=== PATIENT | male | born 1955 | race Caucasian/White ===

== ENCOUNTER 2021-02-20 03:01 | Emergency (ER) | payer OTHER ==
[2021-02-20] MEDS ORDERED: METHOCARBAMOL 750 MG TABLET PO STA (03:18)
[2021-02-20] MEDS ORDERED: predniSONE 20 MG TABLET (UD) PO ONE (03:19)
[2021-02-20] MEDS ORDERED: predniSONE 20 MG TABLET (UD) ONE (03:19)
[2021-02-20] MEDS ORDERED: KETOROLAC TROMETHAMINE 60 MG/2 ML VIAL IM ONE (03:19)
[2021-02-20] MEDS ORDERED: METHOCARBAMOL 500 MG TABLET ONE (03:20)
[2021-02-20] MEDS ORDERED: KETOROLAC TROMETHAMINE 60 MG/2 ML VIAL ONE (03:20)
[2021-02-20] MEDS ORDERED: METHOCARBAMOL 500 MG TABLET PO ONE (03:29)
[2021-02-20 03:37] VITALS: TEMP 98.7; BMI 28.8
[2021-02-20 03:38] VITALS: BP 164/96; PULSE 70
== END 2021-02-20 03:40 | disposition home or self-care (01) ==
LOC: FER 03:01
DX: M54.32 Sciatica, left side (principal)
CPT/HCPCS: 99283-25

== ENCOUNTER 2021-06-20 09:04 | Day surgery (SDC) | payer OTHER ==
[2021-06-12 13:27] VITALS: BMI 28.3
[2021-06-20] MEDS ORDERED: MIDAZOLAM HCL 2 MG/2 ML SINGLE DOSE VIAL ONE (10:29)
[2021-06-20] MEDS ORDERED: BUPIVACAINE HCL/PF 0.5% (5 MG/ML) 30 ML VIAL IJ ONE (10:29)
[2021-06-20] MEDS ORDERED: BUPIVACAINE HCL/PF 0.5% (5MG/ML) 10 ML VIAL ONE (10:29)
[2021-06-20] MEDS ORDERED: BUPIVACAINE LIPOSOME/PF (EXPAREL) 266 MG/20 ML VIAL ONE (10:29)
[2021-06-20] MEDS ORDERED: SODIUM CHLORIDE 0.9% P/F 10 ML VIAL IJ ONE (10:30)
[2021-06-20] MEDS ORDERED: CEFAZOLIN 2 GM in DEXTROSE 5%-WATER - 50 ML IVPB ONE (11:15)
[2021-06-20] MEDS ORDERED: TRANEXAMIC ACID 1000 MG/10 ML VIAL IVPUSH ONE (11:15)
[2021-06-20] MEDS ORDERED: ceFAZolin SODIUM 1 GM VIAL ONE ×2 (12:10→21:43)
[2021-06-20] MEDS ORDERED: DEXAMETHASONE SOD PHOSPHATE 4 MG/1 ML VIAL ONE (12:10)
[2021-06-20] MEDS ORDERED: ONDANSETRON 4 MG/2 ML VIAL ONE (12:10)
[2021-06-20] MEDS ORDERED: TRANEXAMIC ACID 1000 MG/10 ML VIAL ONE ×2 (12:10→13:33)
[2021-06-20] MEDS ORDERED: PROMETHAZINE HCL 25 MG/1 ML VIAL IVPUSH PRN (14:23)
[2021-06-20] MEDS ORDERED: oxyCODONE HCL 5 MG TABLET PO PRN (14:23)
[2021-06-20] MEDS ORDERED: SCOPOLAMINE HYDROBROMIDE 1 PATCH PATCH.TD72 TD SCH (14:30)
[2021-06-20] MEDS ORDERED: MAG HYDROX/AL HYDROX/SIMETH 30 ML UNIT-DOSE CUP PO PRN (14:52)
[2021-06-20] MEDS ORDERED: ONDANSETRON 4 MG/2 ML VIAL IVPUSH PRN (14:52)
[2021-06-20] MEDS ORDERED: MAGNESIUM HYDROX 2400MG/30ML ORAL SUSPENSION 30 ML CUP PO PRN (14:52)
[2021-06-20] MEDS ORDERED: ACETAMINOPHEN 500 MG TABLET (FP) ONE (14:55)
[2021-06-20] MEDS ORDERED: LACTATED RINGERS SOLUTION 1,000 ML IV SCH (15:00)
[2021-06-20] MEDS: ACETAMINOPHEN 500 MG TABLET (FP) PO SCH ×2 (15:06→21:56)
[2021-06-20] MEDS ORDERED: oxyCODONE HCL 5 MG TABLET ONE (15:28)
[2021-06-20] MEDS: oxyCODONE HCL 5 MG TABLET PO PRN ×2 (15:30→21:56)
[2021-06-20] MEDS: CEFAZOLIN 2 GM in DEXTROSE 5%-WATER - 100 ML IVPB SCH (20:56)
[2021-06-20] MEDS ORDERED: DEXTROSE 5%-WATER - 100 ML IVPB ONE (21:43)
[2021-06-20] MEDS: ASPIRIN COATED 81 MG TABLET.EC PO SCH (21:55)
[2021-06-20] MEDS: GABAPENTIN 300 MG CAPSULE PO SCH (21:55)
[2021-06-20] MEDS: ASCORBIC ACID 500 MG TABLET (FP) PO SCH (21:55)
[2021-06-20] MEDS: SENNOSIDES/DOCUSATE COMBO (SENNA PLUS) TABLET (UD) PO SCH (21:57)
[2021-06-20] MEDS ORDERED: ATORVASTATIN CA 20 MG TABLET (FP) PO SCH (22:00)
[2021-06-21] MEDS: oxyCODONE HCL 5 MG TABLET PO PRN ×2 (01:35→05:59)
[2021-06-21] MEDS: ACETAMINOPHEN 500 MG TABLET (FP) PO SCH ×3 (03:11→15:04)
[2021-06-21] MEDS: CEFAZOLIN 2 GM in DEXTROSE 5%-WATER - 100 ML IVPB SCH (04:59)
[2021-06-21] MEDS ORDERED: metFORMIN HCL 500 MG TABLET (FP) PO SCH (07:00)
[2021-06-21 07:50] LABS: CALCIUM 8.9 mg/dl (8.5-10); CREATININE 0.9 mg/dl (0.55-1.3)
[2021-06-21 08:05] LABS: HEMATOCRIT 35.8 % (35.4-49); HEMOGLOBIN 12.3 G/dL (11.7-16.9); MCHC 34.4 g/dl (32.0-35.9); MEAN PLT VOLUME 8.2 fl (7.5-11.1); PLATELET COUNT 235.9 10^3/uL (134-434); RBC 4.11 10^6/uL (4.00-5.60); RDW 13.9 % (11.9-15.9); WHITE BLOOD COUNT 14.6 10^3/uL (4.0-10.8)
[2021-06-21] MEDS: GABAPENTIN 300 MG CAPSULE PO SCH (09:22)
[2021-06-21] MEDS: ASCORBIC ACID 500 MG TABLET (FP) PO SCH (09:23)
[2021-06-21] MEDS: SENNOSIDES/DOCUSATE COMBO (SENNA PLUS) TABLET (UD) PO SCH (09:23)
[2021-06-21] MEDS: ASPIRIN COATED 81 MG TABLET.EC PO SCH (09:24)
[2021-06-21] MEDS ORDERED: PANTOPRAZOLE 40 MG TABLET PO SCH (10:00)
[2021-06-21] MEDS ORDERED: MECLIZINE HCL 25 MG TABLET (FP) PO SCH (10:00)
[2021-06-21] MEDS ORDERED: MULTIVITAMINS (DAILY MVI) TABLET (FP) PO SCH (10:00)
[2021-06-21 14:10] VITALS: BP 138/71; PULSE 86; TEMP 98.1
== END 2021-06-21 16:08 | disposition home or self-care (01) ==
LOC: FASUSAT 09:04 → FM/S 16:16 → FASUSAT 06-21 16:08
PROVIDERS: ATTEND Orthopaedic Surgery
PROC: 0SRD0J9 Replacement of Left Knee Joint with Synthetic Substitute, Cemented, Open Approach (ICD-10-PCS; principal; 2021-06-20 12:28)
DX: M17.12 Unilateral primary osteoarthritis, left knee (principal)
CPT/HCPCS: 27447; C1776; 36415; 73560-TC-LT-FY; 80048; 82962; 85027; 88305-TC; 88311-TC; 94760; 97010-GP; 97116-GP; 97163-GP

== ENCOUNTER 2022-01-02 06:06 | Day surgery (SDC) | payer OTHER ==
[2021-12-28 11:10] VITALS: BMI 27.3
[2022-01-02] MEDS ORDERED: TRANEXAMIC ACID 1000 MG/10 ML VIAL IVPUSH ONE (06:25)
[2022-01-02] MEDS ORDERED: CEFAZOLIN 2 GM in DEXTROSE 5%-WATER - 50 ML IVPB ONE (06:30)
[2022-01-02] MEDS ORDERED: MIDAZOLAM HCL 2 MG/2 ML SINGLE DOSE VIAL ONE (07:24)
[2022-01-02] MEDS ORDERED: BUPIVACAINE LIPOSOME/PF (EXPAREL) 266 MG/20 ML VIAL ONE (07:24)
[2022-01-02] MEDS ORDERED: BUPIVACAINE HCL 100 ML ONE (07:24)
[2022-01-02] MEDS ORDERED: SODIUM CHLORIDE 0.9% P/F 10 ML VIAL IJ ONE (07:25)
[2022-01-02] MEDS ORDERED: SUCCINYLCHOLINE CHLORIDE 200 MG/10 ML SYRINGE ONE (07:37)
[2022-01-02] MEDS ORDERED: PROPOFOL 60 ML ONE (07:37)
[2022-01-02] MEDS ORDERED: TRANEXAMIC ACID 1000 MG/10 ML VIAL ONE (10:18)
[2022-01-02] MEDS ORDERED: DEXAMETHASONE SOD PHOSPHATE 4 MG/1 ML VIAL ONE (10:18)
[2022-01-02] MEDS ORDERED: ceFAZolin SODIUM 1 GM VIAL ONE (10:18)
[2022-01-02] MEDS ORDERED: ONDANSETRON 4 MG/2 ML VIAL ONE ×2 (10:18→13:43)
[2022-01-02] MEDS ORDERED: MAG HYDROX/AL HYDROX/SIMETH 30 ML UNIT-DOSE CUP PO PRN (12:36)
[2022-01-02] MEDS ORDERED: ONDANSETRON 4 MG/2 ML VIAL IVPUSH PRN (12:36)
[2022-01-02] MEDS ORDERED: MAGNESIUM HYDROX 2400MG/30ML ORAL SUSPENSION 30 ML CUP PO PRN (12:36)
[2022-01-02] MEDS ORDERED: LACTATED RINGERS SOLUTION 1,000 ML IV SCH ×2 (12:45→13:00)
[2022-01-02] MEDS ORDERED: ACETAMINOPHEN 1000 MG/100 ML BAG IVPB ONE (12:47)
[2022-01-02] MEDS ORDERED: oxyCODONE HCL 5 MG TABLET PO PRN (12:47)
[2022-01-02] MEDS ORDERED: FENTANYL CITRATE/PF 50 MCG/ML VIAL ONE ×2 (12:50→13:30)
[2022-01-02] MEDS: SODIUM CHLORIDE 1,000 ML IV SCH (14:25)
[2022-01-02] MEDS: CEFAZOLIN SODIUM 2 GM in DEXTROSE 5%-WATER 100 ML IVPB SCH (17:50)
[2022-01-02] MEDS: oxyCODONE HCL 5 MG TABLET PO PRN (21:00)
[2022-01-02] MEDS: SENNOSIDES/DOCUSATE COMBO (SENNA PLUS) TABLET (UD) PO SCH (21:00)
[2022-01-02] MEDS: ACETAMINOPHEN 500 MG TABLET (FP) PO SCH (21:01)
[2022-01-02] MEDS: ASPIRIN 81 MG CHEWABLE TABLETS PO SCH (21:33)
[2022-01-02 22:36] VITALS: RESP 18
[2022-01-02] MEDS ORDERED: ZOLPIDEM TARTRATE 5 MG TABLET PO ONE (22:50)
[2022-01-03] MEDS: CEFAZOLIN SODIUM 2 GM in DEXTROSE 5%-WATER 100 ML IVPB SCH (02:33)
[2022-01-03] MEDS: ACETAMINOPHEN 500 MG TABLET (FP) PO SCH ×3 (03:27→16:06)
[2022-01-03] MEDS: oxyCODONE HCL 5 MG TABLET PO PRN ×2 (06:22→09:13)
[2022-01-03] MEDS ORDERED: metFORMIN HCL 500 MG TABLET (FP) PO SCH (07:00)
[2022-01-03 08:33] LABS: CALCIUM 8.7 mg/dl (8.5-10); CREATININE 0.9 mg/dl (0.55-1.3)
[2022-01-03 08:48] LABS: HEMATOCRIT 37.4 % (35.4-49); HEMOGLOBIN 12.7 G/dL (11.7-16.9); MCH 29.1 pg (25.7-33.7); MEAN CELL VOLUME 85.7 fl (80-96); MEAN PLT VOLUME 8.7 fl (7.5-11.1); PLATELET COUNT 224.3 10^3/uL (134-434); RBC 4.36 10^6/uL (4.00-5.60); RDW 14.2 % (11.9-15.9); WHITE BLOOD COUNT 13.3 10^3/uL (4.0-10.8)
[2022-01-03] MEDS: ASPIRIN 81 MG CHEWABLE TABLETS PO SCH (09:12)
[2022-01-03] MEDS: SENNOSIDES/DOCUSATE COMBO (SENNA PLUS) TABLET (UD) PO SCH (09:14)
[2022-01-03] MEDS ORDERED: PANTOPRAZOLE 40 MG TABLET PO SCH (10:00)
[2022-01-03] MEDS ORDERED: SIMVASTATIN 40 MG PO SCH (10:00)
[2022-01-03] MEDS ORDERED: MECLIZINE HCL 25 MG TABLET (FP) PO SCH (10:00)
[2022-01-03] MEDS ORDERED: MULTIVITAMINS (DAILY MVI) TABLET (FP) PO SCH (10:00)
[2022-01-03] MEDS: SODIUM CHLORIDE 1,000 ML IV SCH (12:57)
[2022-01-03 13:55] VITALS: BP 149/70; PULSE 79; TEMP 98.6
[2022-01-03] MEDS ORDERED: ATORVASTATIN CA 20 MG TABLET (FP) PO SCH (22:00)
== END 2022-01-03 16:33 | disposition home or self-care (01) ==
LOC: FASUSAT 06:06 → FM/S 14:49 → FASUSAT 01-03 16:33
PROVIDERS: ATTEND Orthopaedic Surgery
PROC: 0SRC0J9 Replacement of Right Knee Joint with Synthetic Substitute, Cemented, Open Approach (ICD-10-PCS; principal; 2022-01-02 10:36)
DX: M17.11 Unilateral primary osteoarthritis, right knee (principal)
CPT/HCPCS: 27447; C1776; 36415; 73560-TC-RT-FY; 80048; 85027; 94760; 97010-GP; 97116-GP; 97162-GP; C1889